=== PATIENT | female | born 1980 | race Two or more races ===

== ENCOUNTER 2025-06-26 11:50 | Day surgery (SDC) | payer MEDICAID, SELFPAY ==
--- NOTE | 2025-06-23 06:00 | EKG_ITS ---
[facility] Test Date: 2025-06-23 Pat Name: ESTUARDO MUNOZ Department: Room: - Gender: Female Gardener: HEATHER : 1980 Requested By: Erwin Locke Order Number: [id number] Reading MD: Erwin Locke Measurements Intervals [place] Rate: 84 P: -2 [place]: 123 QRS: 23 QRSD: 89 T: -26 QT: 351 QTc: 417 Interpretive Statements SINUS RHYTHM NONSPECIFIC T-WAVE ABNORMALITY Compared to ECG 10/05/2023 07:42:45 T-wave abnormality now present ST (T wave) deviation no longer present Myocardial infarct finding no longer present /store/S0/[id number].pdf
[2025-06-23 12:22] LABS: Basophils # (Auto) 0.1 Thou/mm3 (0.0-0.2); Basophils % (Auto) 1 % (0-2.5); Eosinophils # (Auto) 0.3 Thou/mm3 (0.0-0.5); Eosinophils % (Auto) 2 % (0-10); Hematocrit 41.5 % (36.0-46.0); Hemoglobin 14.3 g/dL (12.0-16.0); Immature Granulocytes Auto 0.02 Thou/mm3 (0.00-0.00); Lymphocytes # (Auto) 1.9 Thou/mm3 (1.0-4.8); Lymphocytes % (Auto) 17 % (10-50); Mean Corpuscular HGB Conc 34.5 g/dl (31.0-37.0); Mean Corpuscular Hemoglobin 30.6 pg (25.0-35.0); Mean Corpuscular Volume 89 fL (80-100); Monocytes # (Auto) 0.4 Thou/mm3 (0.0-0.8); Monocytes % (Auto) 4 % (0-12); Neutrophils # (Auto) 8.2 Thou/mm3 (1.8-7.7); Neutrophils % (Auto) 76 % (37-80); Nucleated Red Blood Cell # 0.00 Thou/mm3 (0.00-0.00); Nucleated Red Blood Cell % 0 /100 WBC (0); Platelet Count 232 Thou/mm3 (140-440); RDW Standard Deviation 41.1 fL (36.4-46.3); Red Blood Count 4.68 Miln/mm3 (4.00-5.20); White Blood Count 10.9 Thou/mm3 (3.6-11.0)
[2025-06-23 12:27] LABS: Alanine Aminotransferase 22 U/L (10-49); Albumin, Serum 4.4 gm/dL (3.5-5.0); Albumin/Globulin Ratio 1.4 (1.2-2.2); Alkaline Phosphatase 99 U/L (46-116); Anion Gap 15 (7-16); Aspartate Amino Transferase 30 U/L (0-34); BUN/Creatinine Ratio 10 Ratio (12-20); Bilirubin,Total 0.2 mg/dL (0.3-1.2); Blood Urea Nitrogen 23 mg/dL (9-23); Calcium 12.0 mg/dL (8.3-10.6); Calcium (Corrected) 12.0 mg/dL (8.5-10.1); Carbon Dioxide 27.2 mMol/L (20.0-31.0); Chloride 98 mMol/L (98-107); Creatinine (Component) 2.3 mg/dL (0.6-1.3); Globulin 3.1 gm/dL (2.3-3.5); Glucose 206 mg/dL (74-106); Osmolality,Calculated 289 (275-295); Potassium 3.9 mMol/L (3.4-5.1); Sodium 140 mMol/L (136-145); Total Protein 7.5 gm/dL (5.7-8.2); eGFR 26 See Note
[2025-06-23 12:29] LABS: INR 1.1 (0.9-1.3); Partial Thromboplastin Time 28.4 Seconds (22.0-36.0); Prothrombin Time 11.6 Seconds (9.0-12.2)
[2025-06-23 15:19] VITALS: BMI 28.8
[2025-06-26] VITALS (8 sets, daily range): BP systolic 104–127; BP diastolic 75–98; PULSE 94–100; RESP 15–20; TEMP 36.1–36.7; O2SAT 95–100; BMI 28.3
--- NOTE | 2025-06-26 12:01 | ESHP_ITS ---
RE: ESTUARDO MUNOZ : 1980 DATE OF ADMISSION: 06/26/2025 HISTORY OF PRESENT ILLNESS: This patient was seen in the [facility] on 05/02/2025. This is a 44-year-old female referred by Dr. Jj Brooke for colonoscopy. The patient speaks good Finnish. The patient does not have any complaints other than some feeling of incomplete evacuation after the bowel movement. 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 She has been followed by infectious disease specialist, Dr. Pollard. Another problem consists of hypertension, diabetes, and ASHD which required coronary artery bypass graft in [place]. Her other surgery consists of laparoscopic cholecystectomy. PAST MEDICAL HISTORY: The patient's past medical history revealed active valley fever, history of pneumonia, quadruple heart bypass, lupus, anxiety, hypertension, and diabetes with hyperlipidemia. The patient also had pneumonia and admitted to the hospital in 09/2023. HOME MEDICATIONS: Diflucan. PAST SURGICAL HISTORY: Past surgery consists of fibroid removal in 2019 and heart bypass in 2020, carpal tunnel right hand in 2013, cholecystectomy in 1999, and valley fevers for which she was hospitalized in 2020. ALLERGIES: SHE IS ALLERGIC TO TORADOL, CLINDAMYCIN, WHICH CAUSED ANAPHYLACTIC SHOCK, AMOXICILLIN, WHICH CAUSED ANAPHYLACTIC SHOCK, AND VICODIN, WHICH GIVES HIVES AND PERCOCET. PHYSICAL EXAMINATION: GENERAL: Physical examination revealed an obese female who is 5 feet 4 inches tall weighing 165 pounds with BMI of 28.9. This female appears much older than her stated age of 44. VITAL SIGNS: Temperature of 97.7, pulse 96, BP 126/88. HEENT: Examination of the head, normal; eyes, ears, nose, and throat were normal. Ears are normal. CHEST: Revealed good breath sounds on both sides. HEART: Revealed sinus rhythm, no murmurs. Surgical scar seen on the chest. IMPRESSION: 1. Screening colonoscopy. 2. Obesity. 3. Anxiety disorder. 4. Essential hypertension. 5. Diabetes mellitus and hyperlipidemia and then valley fever. PLAN: I advised the patient to undergo colonoscopy. She is agreeable and would like to have this procedure under [facility]. She is scheduled on 06/26/2025. DT: 10:02:41 TT: 10:29:00 Ref: [id number] - TID: [id number]
[2025-06-26] MEDS: DEXTROSE 50%-WATER INJ 50 ML SYRINGE 25 ML IVP (12:59)
[2025-06-26] MEDS: SODIUM CHLORIDE 0.9% 250 ML 250 ML 20 ML IV (13:00)
[2025-06-26 13:11] LABS: HCG,Qualitative Serum Negative
--- NOTE | 2025-06-26 13:54 | SUR.PHASEII ---
1354 patient arrived to recovery resting comfortably in [facility], on oxygen 3L via nasal cannula, breathing unlabored, vital signs stable, denies pain and nausea, report received from Dr. Weeks and Ainsley FARFAN
--- NOTE | 2025-06-26 14:51 | SUR.PHASEII ---
1451 patient meets discharge criteria from recovery, awake and alert, breathing unlabored, vital signs stable, denies pain and nausea, drinking fluids; tolerating well, assisted with dressing into her clothing by her , discharge instructions given to patient and patients , signed discharge instructions. Patient given all her belongings prior to discharge, transported via her personal wheelchair and left in a private vehicle.
== END 2025-06-26 14:51 | disposition home or self-care (01) ==
PROVIDERS: Anesthesiology; PCP Family Medicine; Referring Provider Surgery; Visit Provider Surgery
PROC: 0DJD8ZZ Inspection of Lower Intestinal Tract, Via Natural or Artificial Opening Endoscopic (ICD-10-PCS; CPT 45378; principal; 2025-06-26 13:00)
DX: Z12.11 Encounter for screening for malignant neoplasm of colon (principal); K57.30 Diverticulosis of large intestine without perforation or abscess without bleeding; K63.5 Polyp of colon; I10 Essential (primary) hypertension; E11.9 Type 2 diabetes mellitus without complications; I25.10 Atherosclerotic heart disease of native coronary artery without angina pectoris; Z90.49 Acquired absence of other specified parts of digestive tract; F41.9 Anxiety disorder, unspecified; Z68.28 Body mass index [BMI] 28.0-28.9, adult; E66.9 Obesity, unspecified; B38.0 Acute pulmonary coccidioidomycosis; E78.5 Hyperlipidemia, unspecified
CPT/HCPCS: 45385; 36415; 80053; 84703; 85025; 85610; 85730; 93005; A4649; J7050

== ENCOUNTER 2025-08-03 13:42 | Emergency (ER) | payer MEDICAID, SELFPAY ==
--- NOTE | 2025-08-03 13:45 | EKG_ITS ---
[facility] Test Date: 2025-08-03 Pat Name: ESTUARDO MUNOZ Department: Room: - Gender: Female Analytics Associate: : 1980 Requested By: ED Temporary Provider Order Number: [id number] Reading MD: ED Temporary Provider Measurements Intervals [place] Rate: 86 P: 7 GA: 115 QRS: 21 QRSD: 85 T: -7 QT: 379 QTc: 454 Interpretive Statements SINUS RHYTHM WITH SHORT GA INTERVAL Compared to ECG 06/23/2025 11:48:47 Short GA interval now present T-wave abnormality no longer present /store/S0/[id number]/[id number]
[2025-08-03 13:47] VITALS: BP 130/83; PULSE 92; RESP 17; TEMP 37.1; O2SAT 97
--- NOTE | 2025-08-03 13:49 | XR_ITS ---
EXAMINATION: PA lateral chest 2 views TECHNIQUE: Upright PA lateral chest 2 views Date and time: August 03-5139 5 hours, comparison October 05, 2023 INDICATIONS: Chest pain 3 days, history quadruple cardiac bypass 2020 FINDINGS: Mild prominence left ventricle CABG Subsegmental atelectasis in the right midlung No interval pneumonia or pulmonary edema IMPRESSION: No interval pneumonia or pulmonary edema
--- NOTE | 2025-08-03 13:50 | PD.EDRME ---
Rapid Medical Screening Exam RME Arrival date/time: 08/03/25 13:42 44-year-old female presents to the Emergency Department complaint of chest pain Chief Complaint: Chest Pain
[2025-08-03 14:17] LABS: Basophils # (Auto) 0.1 Thou/mm3 (0.0-0.2); Basophils % (Auto) 1 % (0-2.5); Eosinophils # (Auto) 0.3 Thou/mm3 (0.0-0.5); Eosinophils % (Auto) 3 % (0-10); Hematocrit 43.0 % (36.0-46.0); Hemoglobin 15.4 g/dL (12.0-16.0); Immature Granulocytes Auto 0.03 Thou/mm3 (0.00-0.00); Lymphocytes # (Auto) 2.0 Thou/mm3 (1.0-4.8); Lymphocytes % (Auto) 21 % (10-50); Mean Corpuscular HGB Conc 35.8 g/dl (31.0-37.0); Mean Corpuscular Hemoglobin 31.2 pg (25.0-35.0); Mean Corpuscular Volume 87 fL (80-100); Monocytes # (Auto) 0.5 Thou/mm3 (0.0-0.8); Monocytes % (Auto) 5 % (0-12); Neutrophils # (Auto) 6.5 Thou/mm3 (1.8-7.7); Neutrophils % (Auto) 70 % (37-80); Nucleated Red Blood Cell # 0.00 Thou/mm3 (0.00-0.00); Nucleated Red Blood Cell % 0 /100 WBC (0); Platelet Count 235 Thou/mm3 (140-440); RDW Standard Deviation 41.4 fL (36.4-46.3); Red Blood Count 4.94 Miln/mm3 (4.00-5.20); White Blood Count 9.4 Thou/mm3 (3.6-11.0)
[2025-08-03 14:32] LABS: INR 1.1 (0.9-1.3); Partial Thromboplastin Time 31.0 Seconds (22.0-36.0); Prothrombin Time 11.2 Seconds (9.0-12.2)
[2025-08-03 14:33] LABS: B-Type Natriuretic Peptide 28 pg/mL (0-100)
[2025-08-03 14:37] LABS: Alanine Aminotransferase 22 U/L (10-49); Albumin, Serum 4.4 gm/dL (3.5-5.0); Albumin/Globulin Ratio 1.4 (1.2-2.2); Alkaline Phosphatase 101 U/L (46-116); Anion Gap 12 (7-16); Aspartate Amino Transferase 37 U/L (0-34); BUN/Creatinine Ratio 10 Ratio (12-20); Bilirubin,Total 0.3 mg/dL (0.3-1.2); Blood Urea Nitrogen 21 mg/dL (9-23); Calcium 10.0 mg/dL (8.3-10.6); Calcium (Corrected) 10.0 mg/dL (8.5-10.1); Carbon Dioxide 26.8 mMol/L (20.0-31.0); Chloride 99 mMol/L (98-107); Creatinine (Component) 2.1 mg/dL (0.6-1.3); Globulin 3.1 gm/dL (2.3-3.5); Glucose 169 mg/dL (74-106); Magnesium 2.1 mg/dL (1.6-2.6); Osmolality,Calculated 282 (275-295); Potassium 4.1 mMol/L (3.4-5.1); Sodium 138 mMol/L (136-145); Total Protein 7.5 gm/dL (5.7-8.2); Troponin I < 0.002 ng/mL (0.0-0.045); eGFR 29 See Note
--- NOTE | 2025-08-03 14:55 | PD.EDADULT ---
ED General RME/HPI General Chief complaint: Chest Pain Stated complaint: C/P LEFT ARM PAIN AND JAW PAIN X3 DAYS Time Seen by Provider: 08/03/25 14:55 Arrival date/time: 08/03/25 13:42 RME / HPI RME / HPI narrative: Sofia is a 44 y/o female with PM[facility]x of [facility] Insulin dependent type II DM, hypertension, hyperlipidemia, CKD, chronic valley fever, depression who comes in for evaluation of sharp chest pain, acute onset, rated 10 out of 10, located on bilateral chest, radiating to left mouth, not improved with Tylenol present at rest,. Patient reports that is all started today. She initially thought that this was gastritis, however she felt like her pain kept getting worse more than that is why she came to the emergency room evaluated. She says her legal stenographer is Dr. Riggins in [place], and her cardiothoracic surgeon is Dr. Bradley. She has an appointment with her legal stenographer next week. She only takes aspirin as a blood thinner. She denies a history of stents. She has not noticed increased shortness of breath. She uses 2 L of oxygen at home at night. Her primary care doctor is Dr. Brooke. Denies any diaphoresis, hemoptysis, numbness, tingling, headache and vomiting at this time. No other complaints at this time. Related Data Home Medications ?Medication ?Instructions ?Recorded ?Confirmed rosuvastatin 5 mg tablet 5 mg PO EVERYOTHERDAY 10/04/22 06/26/25 aspirin 81 mg tablet,delayed 81 mg PO DAILY 10/03/23 06/26/25 release atenolol 50 mg tablet 50 mg PO BID 10/03/23 06/26/25 furosemide 40 mg tablet 40 mg PO DAILY 10/03/23 06/26/25 insulin glargine 100 unit/mL (3 35 unit subcut HS 10/03/23 06/26/25 mL) subcutaneous pen (Basaglar KwikPen U-100 Insulin) isosorbide mononitrate 30 mg 30 mg PO DAILY 10/03/23 06/26/25 tablet,extended release 24 hr sacubitril 24 mg-valsartan 26 mg 0.5 tab PO BID 10/03/23 06/26/25 tablet (Entresto) vitamin B comp no.3-folic acid 1 1 tab PO DAILY 10/03/23 06/26/25 mg-vit C 60 mg-biotin 300 mcg tablet (Love-Elizabeth Rx) amitriptyline 25 mg tablet 25 mg PO HS 06/26/25 06/26/25 atogepant 60 mg tablet (Qulipta) 60 mg PO QDAY 06/26/25 06/26/25 calcitriol 0.5 mcg capsule 0.5 mcg PO DAILY 06/26/25 06/26/25 dapagliflozin propanediol 5 mg 5 mg PO QDAY 06/26/25 06/26/25 tablet (Farxiga) evolocumab 140 mg/mL subcutaneous 140 mg subcut .COMPLEX 06/26/25 06/26/25 pen injector (Norma Alejandre) fluconazole 200 mg tablet 200 mg PO DAILY 06/26/25 06/26/25 levothyroxine 25 mcg tablet 25 mcg PO QDAY 06/26/25 06/26/25 sertraline 200 mg capsule 200 mg PO Q24H 06/26/25 06/26/25 tirzepatide 7.5 mg/0.5 mL 7.5 mg subcut QWEEK 06/26/25 06/26/25 subcutaneous pen injector (Carlos) trazodone 50 mg tablet 50 mg PO HS 06/26/25 06/26/25 Previous Rx's ?Medication ?Instructions ?Recorded insulin lispro 100 unit/mL 1 sliding scale dose subcut 07/11/21 subcutaneous solution (Admelog USEASDIRECTD #10 mL U-100 Insulin lispro) Allergies Allergy/AdvReac Type Severity Reaction Status Date / Time amoxicillin Allergy Severe ANAPHYLAXIS Verified 08/03/25 13:45 clindamycin Allergy Severe ANAPHYLAXIS Verified 08/03/25 13:45 Review of Systems Review of Systems Narrative Review of Systems: 12 point ROS reviewed and is otherwise negative unless stated directly in the HPI ED Exam Narrative Physical exam: General: AAOx3, NAD, obese female HEENT: Moist mucous membranes, conjunctiva clear, EOMI, PERRLA, Cardiovascular: S1, S2, radial pulses +2 bilat, RRR, reproducible chest pain, CABG scar midline Pulmonary: CTAB bilat no cough, no wheezing GI: No tenderness to light or deep palpitation, no guarding, rigidity, rebound tenderness or distension, abdomen soft, chest tube scars present, laparoscopic scars Extremities: No presence of trace or pitting edema in lower extremities bilaterally, dorsalis pedis pulses +2 bilaterally Neuro: AAOx3, no focal motor or sensory deficits in the UE or LE bilat Psych: Good judgement, thought and behavior Course Quality Measures none Orders Category Date Time Status Batting Machine Operator Insulation NOW Care 08/03/25 13:49 Active EKG (ED ONLY) *Do not use* NOW Care 08/03/25 13:45 Completed Insert IV NOW Care 08/03/25 14:51 Active EKG (ED Only) Stat Exams 08/03/25 13:45 Draft XR chest 2V Stat Exams 08/03/25 13:49 Completed B-Type Natriuretic Peptide Stat Lab 08/03/25 14:02 Completed CBC Stat Lab 08/03/25 14:02 Completed Comprehensive Metabolic Panel Stat Lab 08/03/25 14:02 Completed Drug Screen,Urine Stat Lab 08/03/25 14:33 Ordered HCG,Qualitative Serum Stat Lab 08/03/25 14:02 Completed Magnesium Stat Lab 08/03/25 14:02 Completed Partial Thromboplastin Time Stat Lab 08/03/25 14:02 Completed Prothrombin Time with INR Stat Lab 08/03/25 14:02 Completed Troponin I Stat Lab 08/03/25 14:02 Completed Troponin I Stat Lab 08/03/25 16:53 Completed ACETAMINOPHEN w/COD 300-30 [Tylenol w/Cod #3] Med 08/03/25 17:34 Discontinued 1 tab PO X1 ONE Lidocaine 2% Viscous [Xylocaine 2% Viscous] Med 08/03/25 14:51 Discontinued 15 ml PO X1 ONE Pantoprazole Inj [Protonix Inj] Med 08/03/25 14:51 Discontinued 40 mg IVP X1 ONE Pantoprazole [Protonix] Med 08/03/25 16:37 Discontinued 40 mg PO X1 ONE mg Hyd/Al Hyd/Angel Susp [Maalox Susp] Med 08/03/25 14:51 Discontinued 30 ml PO X1 ONE Vital Signs Vital signs: Vital Signs Temperature 98.8 F 08/03/25 13:47 Pulse Rate 92 08/03/25 13:47 Respiratory Rate 17 08/03/25 13:47 Blood Pressure 130/83 08/03/25 13:47 Pulse Oximetry (%) 97 08/03/25 13:47 Oxygen Delivery Method Room Air 08/03/25 13:47 Discharge Plan Plan Patient Disposition: HOME (Self Care) Prescriptions/Referrals Prescriptions/Med Rec: No Action insulin lispro [Admelog U-100 Insulin lispro] 100 unit/mL Solution 1 sliding scale dose SUBCUT USEASDIRECTD Qty: 10 0RF rosuvastatin 5 mg tablet 5 mg PO EVERYOTHERDAY Patient Comments: take 1 tablet by mouth every other day isosorbide mononitrate 30 mg tablet extended release 24 hr 30 mg PO DAILY Patient Comments: take 1 tablet by mouth every morning aspirin 81 mg tablet,delayed release (DR/EC) 81 mg PO DAILY Patient Comments: TAKE 1 TABLET BY MOUTH ONCE A DAY insulin glargine [Basaglar KwikPen U-100 Insulin] 100 unit/mL (3 mL) insulin pen 35 unit SUBCUT HS Love-Elizabeth Rx 1-60-300 mg-mg-mcg tablet 1 tab PO DAILY Patient Comments: TAKE 1 TABLET BY MOUTH ONCE A DAY furosemide 40 mg tablet 40 mg PO DAILY Patient Comments: TAKE 1 TABLET BY MOUTH ONCE A DAY atenolol 50 mg tablet 50 mg PO BID Patient Comments: take 1 tablet by mouth twice a day sacubitril-valsartan [Entresto] 24-26 mg Tablet 0.5 tab PO BID Mounjaro 7.5 mg/0.5 mL pen injector 7.5 mg SUBCUT QWEEK amitriptyline 25 mg tablet 25 mg PO HS Patient Comments: TAKE 1 TABLET BY MOUTH EVERY NIGHT AT BEDTIME dapagliflozin propanediol [Farxiga] 5 mg tablet 5 mg PO QDAY trazodone 50 mg tablet 50 mg PO HS Patient Comments: TAKE 1 TABLET BY MOUTH AT BEDTIME calcitriol 0.5 mcg capsule 0.5 mcg PO DAILY Patient Comments: TAKE 1 CAPSULE BY MOUTH DAILY sertraline 200 mg capsule 200 mg PO Q24H Patient Comments: TAKE 1 CAPSULE BY MOUTH ONCE A DAY Qulipta 60 mg tablet 60 mg PO QDAY levothyroxine 25 mcg tablet 25 mcg PO QDAY Patient Comments: TAKE 1 TABLET BY MOUTH ONCE A DAY fluconazole 200 mg tablet 200 mg PO DAILY Patient Comments: TAKE 2 TABLETS BY MOUTH DAILY Repatha SureClick 140 mg/mL pen injector 140 mg SUBCUT .COMPLEX Rx Instructions: 140 mg subcutaneously every 2 weeks; Referrals: Jj Brooke MD [Primary Care Provider, Family Practice] - In 1 week Problem List Clinical Impression: Atypical chest pain Patient/Caregiver Discharge Instructions Education Materials: ED Chest Pain, Noncardiac, ED Chest Pain, Uncertain Cause Additional Instructions: Discharge instructions Follow-up with your PCP within 1 week Take your medicines as prescribed Please follow up with your Button Breaker Operator as you said you have an appointment next week At this time, your chest pain does not seem to be cardiac in nature. However, if you begin to have worsening and consistent chest pain, return to the ER immediately Return to ED if your symptoms worsen or return Print Language: Serbian Stand Alone Forms: Technical Machine Award Info., Patient Portal Info Letter MDM Narrative MDM hospital course (for use when minimal MDM required): 1502: GI cocktail, initial troponin negative, BNP 28, pending chest x-ray read. 1630: Ordered Repeat troponin 1735: Repeat troponin negative. In the setting of two negative troponins and no ST changes on EKG, patient is likely experiencing musculoskeletal chest pain. Nevertheless, consulted cardiology, Dr. Aguilar, who does not believe patient needs to be admitted at this time, and to have strict follow-up with PCP and legal stenographer. Medication Administration(s) Medication Administration History Discontinued Medications Acetaminophen/Codeine Phosphate (Acetaminophen W/Cod 300-30 Tablet) 1 tab PO X1 ONE Stop: 08/03/25 17:35 Al Hydrox/Mg Hydrox/Simethicone (Mg Hyd/Al Hyd/Angel (Maalox Reg) Susp 30 Ml Udc) 30 ml PO X1 ONE Stop: 08/03/25 14:52 Last Admin: 08/03/25 17:08 Dose: 30 ml Documented By: NATI Lidocaine HCl (Lidocaine Viscous 2% 15 Ml Udc) 15 ml PO X1 ONE Stop: 08/03/25 14:52 Last Admin: 08/03/25 17:08 Dose: 15 ml Documented By: NATI Pantoprazole Sodium (Pantoprazole Inj 40 Mg Vial) 40 mg IVP X1 ONE Stop: 08/03/25 14:52 Last Admin: 08/03/25 17:09 Dose: Not Given Documented By: NATI Non-Admin Reason: Cancelled by Provider Pantoprazole Sodium (Pantoprazole 40 Mg Tablet) 40 mg PO X1 ONE Stop: 08/03/25 16:38 Last Admin: 08/03/25 17:07 Dose: 40 mg Documented By: NATI Consultations/Discussions re: Management Consult #1: Date/time: 08/03/25 5:39 pm Physician, specialty, service, details: Consulted cardiology, Dr. Aguilar, who does not believe patient needs to be admitted at this time, and to have strict follow-up with PCP and legal stenographer. Diagnosis Diagnoses ruled out and/or further discussions: Costochondritis, stable angina, musculoskeletal chest pain
[2025-08-03 15:15] LABS: HCG,Qualitative Serum Negative
[2025-08-03] MEDS: PANTOPRAZOLE 40 MG TABLET PO (17:07)
[2025-08-03] MEDS: LIDOCAINE VISCOUS 2% 15 ML UDC PO (17:08)
[2025-08-03] MEDS: MG HYD/AL HYD/SIME (Maalox Reg) SUSP 30 ML UDC PO (17:08)
[2025-08-03 17:21] LABS: Troponin I < 0.002 ng/mL (0.0-0.045)
[2025-08-03] MEDS: ACETAMINOPHEN w/COD 300-30 TABLET 1 TAB PO (17:54)
[2025-08-03 18:01] VITALS: BP 115/85; PULSE 87; RESP 16; TEMP 36.5; O2SAT 96
== END 2025-08-03 18:01 | disposition home or self-care (01) ==
PROVIDERS: Nurse Practitioner Primary Care; PCP Family Medicine
DX: R07.9 Chest pain, unspecified (principal)
CPT/HCPCS: 36415; 71046; 80053; 80307; 83735; 83880; 84484; 84703; 85025; 85610; 85730; 93005; 99283; J3490; A9270

== ENCOUNTER → 2025-08-08 | Outpatient (CLI) | payer MEDICAID, SELFPAY ==
--- NOTE | 2025-08-08 | XR_ITS ---
Examination: Hand, left 3 views Technique: Hand AP, oblique, lateral 3 views Date and time of exam: August 08, 2025, 1146 hours INDICATIONS: Carpal tunnel pain 2 years Findings: Moderate osteopenia. No fracture or dislocation. Mild diffuse narrowing joints of the wrist and hand No erosive arthritis IMPRESSION: Mild diffuse narrowing joints of the wrist and hand No erosive arthritis
--- NOTE | 2025-08-08 | XR_ITS ---
Examination: Wrist, left 3 views Technique: Wrist AP, oblique, lateral 3 views Date and time of exam: August 08, 2025, 1146 hours INDICATIONS: Left wrist pain 2 years FINDINGS: Moderate osteopenia Mild narrowing radiocarpal intercarpal carpometacarpal joints No erosive arthritis No avascular necrosis No fracture IMPRESSION: Mild narrowing radiocarpal intercarpal carpometacarpal joints
== END | disposition home or self-care (01) ==
PROVIDERS: PCP Nurse Practitioner Gerontology; Referring Provider Nurse Practitioner Gerontology; Visit Provider Nurse Practitioner Gerontology
DX: M25.832 Other specified joint disorders, left wrist (principal); M25.842 Other specified joint disorders, left hand
CPT/HCPCS: 73110; 73130